=== PATIENT | female | born 1960 | race Asian ===

== ENCOUNTER 2018-02-10 07:44 | Day surgery (SDC) | payer OTHER ==
[2018-02-14 15:15] LABS: Performing Lab SYMBIODX; Test Name TISSUE BLOCK
[2018-02-21 08:08] LABS: Result SEE PATHOTH RESULTS
== END 2018-02-10 22:37 | disposition home or self-care (01) ==
LOC: MOI US 07:44
PROVIDERS: Nurse Practitioner Family
PROC: 0HBU3ZX Excision of Left Breast, Percutaneous Approach, Diagnostic (ICD-10-PCS; principal; 2018-02-10)
DX: C50.912 Malignant neoplasm of unspecified site of left female breast (principal)
CPT/HCPCS: 19083; 77065; 88305; 88360; 88374

== ENCOUNTER 2018-04-21 08:08 | Day surgery (SDC) | payer OTHER | END 2018-04-21 23:30 | disposition home or self-care (01) | LOC: MOI MAM 08:08 | DX: C50.912 Malignant neoplasm of unspecified site of left female breast (principal) | CPT/HCPCS: 19285; 77065 ==

== ENCOUNTER 2018-04-30 08:21 | Day surgery (SDC) | payer OTHER | END 2018-04-30 22:48 | disposition home or self-care (01) | LOC: ORSCMMR 08:21 → NM 08:21 → ORSCMMR 08:22 → NM 09:00 → ORSCMMR 22:48 → NM 22:48 | PROVIDERS: Surgery | PROC: 0JH60WZ Insertion of Totally Implantable Vascular Access Device into Chest Subcutaneous Tissue and Fascia, Open Approach (ICD-10-PCS; principal; 2018-04-30 11:00) | PROC: 07B60ZX Excision of Left Axillary Lymphatic, Open Approach, Diagnostic (ICD-10-PCS; principal; 2018-04-30 11:00) | PROC: 0HBU0ZZ Excision of Left Breast, Open Approach (ICD-10-PCS; principal; 2018-04-30 11:00) | DX: C50.212 Malignant neoplasm of upper-inner quadrant of left female breast (principal); Z17.1 Estrogen receptor negative status [ER-]; E78.5 Hyperlipidemia, unspecified; R73.9 Hyperglycemia, unspecified | CPT/HCPCS: 38792; 76098; 77001; 88305; 88307; A9520; C1788; J0690; J1100; J1642; J2250; J2370; J2405; J3010; J7120; Q9968 ==

== ENCOUNTER 2024-08-31 07:37 | Day surgery (SDC) | payer OTHER | END 2024-09-15 23:50 | disposition home or self-care (01) | LOC: MOI US 07:37 | DX: C50.811 Malignant neoplasm of overlapping sites of right female breast (principal) | CPT/HCPCS: 19285; 77065; A4648 ==

== ENCOUNTER 2024-09-21 08:44 | Day surgery (SDC) | payer OTHER ==
[~2024-09-21] VITALS: Ht 165.1 cm; Wt 57.2 kg
[2024-09-21] VITALS (14 sets, daily range): BP systolic 138–177; BP diastolic 81–99
[2024-09-21] MEDS ORDERED: propofoL 20 ML IV ONE (09:03)
[2024-09-21] MEDS ORDERED: Dexamethasone Sod Phos 10 MG/ML 1ML VIAL ONE (09:03)
[2024-09-21] MEDS ORDERED: Ondansetron HCl 2 MG / ML 2ML Vial ONE (09:03)
[2024-09-21] MEDS ORDERED: FentaNYL Citrate 50 MCG/ML 2 ML Injection ONE ×2 (09:03→13:40)
[2024-09-21] MEDS ORDERED: CeFAZolin Sodium 2,000 MG in NS 100 ML IV SCH (09:45)
[2024-09-21] MEDS ORDERED: Lactated Ringer's 1,000 ML IV SCH (09:45)
[2024-09-21] MEDS ORDERED: CeFAZolin Sodium 2,000 MG VIAL ONE (09:50)
--- NOTE | 2024-09-21 10:05 | NUR ---
History, Chart, Medications and Allergies reviewed before start of procedure. Pre-Op teaching done. Pt verbalizes understanding. Patient confirms NPO status and agrees with scheduled surgery. PT BELONGINGS BAG GIVEN TO AT BS. PT REQUESTED TO NOT REMOVE HER UNDERWEAR. ANES PROVIDER AND SURGEON AWARE OF THIS.
[2024-09-21] MEDS ORDERED: Methylene Blue 1% 100 MG/10 ML VIAL ONE (10:55)
[2024-09-21] MEDS ORDERED: Bupivacaine 0.5% HCl 5 MG/ML 30MLVIAL ONE (10:56)
[2024-09-21] MEDS ORDERED: Midazolam HCl 1MG / ML 2ML Vial IV SCH (11:05)
[2024-09-21] MEDS ORDERED: HYDROcodone 5-APAP 325 TAB PO PRN (13:20)
[2024-09-21] MEDS ORDERED: Ketorolac Tromethamine 30mg Vial ONE (13:39)
--- NOTE | 2024-09-21 15:22 | NUR ---
DISCHARGE NOTE PT A&OX4, BREATHING RA, TOLERATING PO INTAKE, AT BEDSIDE, PO PAIN MEDICATION GIVEN PER MD ORDERS, NO OTHER COMPLAINTS. Patient up to Ambulate independently. Gait steady. Discharge instructions reviewed with patient. Patient verbalizes understanding. Copy given to patient to take home. Dressing to procedure site clean, dry, intact with no visible drainage, swelling, erythema. SLIGHT BRUISING NOTED AT INCISION SITE- GAUZE CLEAN. BREAST BINDER IN PLACE. Discharged via wheelchair to private car for ride home.
== END 2024-09-21 15:15 | disposition home or self-care (01) ==
LOC: ORSCMMR 08:44 → NM 08:44 → ORSCMMR 08:45 → NM 09:00 → ORD 10:30 → ORSCMMR 15:15 → NM 15:15
PROVIDERS: Surgery
PROC: 07B50ZX Excision of Right Axillary Lymphatic, Open Approach, Diagnostic (ICD-10-PCS; principal; 2024-09-21 10:30)
PROC: 0HBT0ZZ Excision of Right Breast, Open Approach (ICD-10-PCS; principal; 2024-09-21 10:30)
DX: C50.811 Malignant neoplasm of overlapping sites of right female breast (principal); D36.0 Benign neoplasm of lymph nodes; Z17.0 Estrogen receptor positive status [ER+]; Z17.21 Progesterone receptor positive status; Z17.32 Human epidermal growth factor receptor 2 negative status; Z85.3 Personal history of malignant neoplasm of breast; E78.5 Hyperlipidemia, unspecified; R73.9 Hyperglycemia, unspecified
CPT/HCPCS: 38792; 76098; 88307; 88342; A9270; A9520; J0690; J1100; J1885; J2250; J2405; J2704; J3010; J7120; Q9968